=== PATIENT | female | born 1965 | race Caucasian/White ===

== ENCOUNTER 2017-06-05 00:10 | Emergency (ER) | payer SELFPAY ==
[~2017-06-05] VITALS: Ht 160 cm; Wt 85.0 kg
[~2017-06-05 00:10] MED LIST: ALUM5LIQ PO; FLUO20TA20 PO; RANI150 PO; SINE50TA PO; TRAM100T19 PO; ZOFR4TAB PO; ZOLP10TA3 PO
[2017-06-05 00:12] VITALS: BP 185/100; PULSE 94; RESP 16; TEMP 97.9; O2SAT 99
[2017-06-05] MEDS ORDERED: SODIUM CHLOR 0.9% 1000 ML INJ 1,000 ML IV SCH (00:35)
[2017-06-05] MEDS ORDERED: ONDANSETRON HCL 4 MG/2 ML VIAL IVP ONE (00:45)
[2017-06-05] MEDS ORDERED: SODIUM CHLORIDE 0.9% FLUSH 10 ML FLUSH IV FLUSH PRN (00:45)
--- NOTE | 2017-06-05 00:48 | PD ---
HPI Chief Complaint: Abdominal Pain Time Seen by Provider: 00:29 Travel History International Travel<30 days: No Contact w/Intl Traveler<30days: No Traveled to known affect area: No History of Present Illness HPI 52-year-old woman presents emergent from her quadrant pains with nausea vomiting ongoing for the past days. Said history of gallbladder problems remote past, nothing recently. Symptoms been severe throughout the day today. Multiple vomiting. No urinary symptoms. No change in her bowel movements. She otherwise had been feeling generally well and healthy. History Past Medical History Narrative Medical Asthma Hypertension Parkinson's Tetanus Vaccination: < 5 Years Influenza Vaccination: No LMP: menapause Menopausal: Yes : 1 Para: 1 Social History Alcohol Use: No Tobacco Use: No Allergies-Medications (Allergen,Severity, Reaction): Coded Allergies: Sulfa (Sulfonamide Antibiotics) (Unverified Allergy, Severe, Anaphylaxis, 06/05/17) latex (Unverified Allergy, Severe, RED SKIN, 06/05/17) penicillin G (Unverified Allergy, Severe, Anaphylaxis, 06/05/17) Reported Meds & Prescriptions Reported Meds & Active Scripts Active Zofran Odt (Ondansetron Odt) 4 Mg Tab 4 Mg SL Q8HR PRN Ranitidine (Ranitidine HCl) 150 Mg Tab 150 Mg PO BID Review of Systems Except as stated in HPI: all other systems reviewed are Neg Physical Exam Narrative GENERAL: 52-year-old woman, no acute distress. SKIN: Focused skin assessment warm/dry. HEAD: Atraumatic. Normocephalic. EYES: Pupils equal and round. No scleral icterus. No injection or drainage. ENT: No nasal bleeding or discharge. Mucous membranes pink and moist. NECK: Trachea midline. No JVD. CARDIOVASCULAR: Regular rate and rhythm. No murmur appreciated. RESPIRATORY: No accessory muscle use. Clear to auscultation. Breath sounds equal bilaterally. GASTROINTESTINAL: Abdomen is obese and soft. Moderate epigastric and right upper quadrant tenderness. No rebound or guarding. MUSCULOSKELETAL: No obvious deformities. No clubbing. No cyanosis. No edema. NEUROLOGICAL: Awake and alert. No obvious cranial nerve deficits. Motor grossly within normal limits. Normal speech. PSYCHIATRIC: Appropriate mood and affect; insight and judgment normal. Data Data Last Documented VS Vital Signs Date Time Temp Pulse Resp B/P (MAP) Pulse Ox O2 Delivery O2 Flow Rate FiO2 06/05/17 02:18 90 18 162/87 (112) 99 06/05/17 00:12 97.9 Room Air Orders Orders Complete Blood Count With Diff (06/05/17 00:35) Comprehensive Metabolic Panel (06/05/17 00:35) Lipase (06/05/17 00:35) Urinalysis - C+S If Indicated (06/05/17 00:35) Us Abdomen Gallbladder (06/05/17 ) Iv Access Insert/Monitor (06/05/17 00:35) Ecg Monitoring (06/05/17 00:35) Oximetry (06/05/17 00:35) Ondansetron Inj (Zofran Inj) (06/05/17 00:45) Sodium Chlor 0.9% 1000 Ml Inj (Ns 1000 M (06/05/17 00:35) Sodium Chloride 0.9% Flush (Ns Flush) (06/05/17 00:45) Ed Discharge Order (06/05/17 02:00) Ondansetron Inj (Zofran Inj) (06/05/17 02:15) Labs Laboratory Tests Test 06/05/17 00:40 White Blood Count 7.8 TH/MM3 Red Blood Count 5.18 MIL/MM3 Hemoglobin 15.6 GM/DL Hematocrit 45.8 % Mean Corpuscular Volume 88.3 FL Mean Corpuscular Hemoglobin 30.1 PG Mean Corpuscular Hemoglobin Concent 34.1 % Red Cell Distribution Width 12.2 % Platelet Count 269 TH/MM3 Mean Platelet Volume 7.1 FL Neutrophils (%) (Auto) 42.1 % Lymphocytes (%) (Auto) 47.3 % Monocytes (%) (Auto) 7.0 % Eosinophils (%) (Auto) 3.1 % Basophils (%) (Auto) 0.5 % Neutrophils # (Auto) 3.3 TH/MM3 Lymphocytes # (Auto) 3.7 TH/MM3 Monocytes # (Auto) 0.5 TH/MM3 Eosinophils # (Auto) 0.2 TH/MM3 Basophils # (Auto) 0.0 TH/MM3 CBC Comment DIFF FINAL Differential Comment Urine Color YELLOW Urine Turbidity CLEAR Urine pH 6.5 Urine Specific [place] 1.017 Urine Protein NEG mg/dL Urine Glucose (UA) NEG mg/dL Urine Ketones NEG mg/dL Urine Occult Blood NEG Urine Nitrite NEG Urine Bilirubin NEG Urine Urobilinogen LESS THAN 2.0 MG/DL Urine Leukocyte Esterase TRACE Urine RBC 1 /hpf Urine WBC 1 /hpf Urine Squamous Epithelial Cells 3 /hpf Urine Mucus FEW /lpf Microscopic Urinalysis Comment CULT NOT INDICATED Blood Urea Nitrogen 12 MG/DL Creatinine 0.80 MG/DL Random Glucose 99 MG/DL Total Protein 7.5 GM/DL Albumin 4.2 GM/DL Calcium Level 9.0 MG/DL Alkaline Phosphatase 136 U/L Aspartate Amino Transf (AST/SGOT) 15 U/L Alanine Aminotransferase (ALT/SGPT) 9 U/L Total Bilirubin 0.6 MG/DL Sodium Level 141 MEQ/L Potassium Level 3.5 MEQ/L Chloride Level 104 MEQ/L Carbon Dioxide Level 29.2 MEQ/L Anion Gap 8 MEQ/L Estimat Glomerular Filtration Rate 75 ML/MIN Lipase 165 U/L [facility] Medical Decision Making Medical Screen Exam Complete: Yes Emergency Medical Condition: Yes Interpretation(s) LABS: CBC is unremarkable. CMP is overall unremarkable. Alkaline phosphatase 136. Lipase normal. UA unremarkable. Right upper quadrant ultrasound negative. Differential Diagnosis Cholecystitis, gastritis, pancreatitis, gastroenteritis, other Narrative Course Medical decision making INITIAL: 52 old woman, right upper quadrant abdominal pain, epigastric tenderness, looks well, probably biliary in origin, possibly gastritis or pancreatitis. We'll check labs, right upper quadrant ultrasound, urine, reassess. Diagnosis Primary Impression: Abdominal pain Additional Impression: Gastritis Additional Instructions: Take ranitidine as prescribed. Use Zofran as needed for nausea or vomiting. Return to the emergency department for any new or worsening symptoms. Scripts Ondansetron Odt (Zofran Odt) 4 Mg Tab 4 MG SL Q8HR Y for Nausea/Vomiting, #12 TAB 0 Refills Prov: Adarsh House MD 06/05/17 Ranitidine (Ranitidine) 150 Mg Tab 150 MG PO BID for Heartburn Management, #60 TAB 0 Refills Prov: Adarsh House MD 06/05/17 Disposition: 01 DISCHARGE HOME Condition: Stable Adarsh House MD Jun 05, 2017 00:48
--- NOTE | 2017-06-05 01:17 | RADRPT ---
EXAM DATE/TIME: 06/05/2017 00:45 [facility] COMPARISON: No previous studies available for comparison. INDICATIONS : Right upper quadrant pain. MEDICAL HISTORY : Parkinson's. Hypertension. Gastroesophageal reflux disease. SURGICAL HISTORY : Tubal ligation. Left knee surgery. Fibroid removed. ENCOUNTER: Initial ACUITY: 1 day PAIN SCORE: 9/10 LOCATION: Right upper quadrant MEASUREMENTS: LIVER: 18.8 cm length COMMON DUCT: 4 mm RIGHT KIDNEY: 9.7 x 5.0 x 4.5 cm FINDINGS: LIVER: Normal echotexture without focal lesion or ductal dilatation. COMMON DUCT: No intraluminal mass or stone visualized. GALLBLADDER: Contains no stones, demonstrates no wall thickening or pericholecystic fluid. PANCREAS: The visualized portions are within normal limits. RIGHT KIDNEY: No evidence of hydronephrosis, stone, or mass. CONCLUSION: Focally unremarkable sonographic appearance of the right upper quadrant Emerson Mcneill MD on June 05, 2017 at 1:15 Board Certified Radiologist. This report was verified electronically.
[2017-06-05 01:27] LABS: AUTOMATED NEUTROPHIL # 3.3 TH/MM3 (1.8-7.7); BASOPHIL % 0.5 % (0.0-2.0); EOSINOPHIL # 0.2 TH/MM3 (0-0.4); EOSINOPHIL % 3.1 % (0.0-4.0); HEMATOCRIT 45.8 % (35.0-46.0); HEMOGLOBIN 15.6 GM/DL (11.6-15.3); LYMPH % 47.3 % (9.0-44.0); LYMPHOCYTE # 3.7 TH/MM3 (1.0-4.8); MEAN CELL VOLUME 88.3 FL (80.0-100.0); MEAN CORPUSCULAR HEMOGLOBIN 30.1 PG (27.0-34.0); MEAN CORPUSCULAR HGB CONC 34.1 % (32.0-36.0); MEAN PLATELET VOLUME 7.1 FL (7.0-11.0); MONOCYTE # 0.5 TH/MM3 (0-0.9); NEUT % 42.1 % (16.0-70.0); PLATELET COUNT 269 TH/MM3 (150-450); RED BLOOD COUNT 5.18 MIL/MM3 (4.00-5.30); RED CELL DISTRIBUTION WIDTH 12.2 % (11.6-17.2); WHITE BLOOD COUNT 7.8 TH/MM3 (4.0-11.0)
[2017-06-05 01:43] LABS: ALBUMIN 4.2 GM/DL (3.4-5.0); ALT (GPT) 9 U/L (10-53); AST (GOT) 15 U/L (15-37); BICARBONATE 29.2 MEQ/L (21.0-32.0); BLOOD UREA NITROGEN 12 MG/DL (7-18); CHLORIDE 104 MEQ/L (98-107); GLOMERULAR FILTRATION RATE 75 ML/MIN (>89); GLUCOSE,RANDOM 99 MG/DL (74-106); LIPASE 165 U/L (73-393); SODIUM (NA) 141 MEQ/L (136-145)
[2017-06-05 01:44] LABS: ALKALINE PHOSPHATASE 136 U/L (45-117); BILIRUBIN, URINE NEG (NEG); BLOOD, URINE NEG (NEG); GLUCOSE,URINE NEG (NEG); KETONE, URINE NEG (NEG); MUCUS URINE FEW /lpf (OCC); NITRITE,URINE NEG (NEG); PH, URINE 6.5 (5.0-8.5); SQUAMOUS EPITHELIAL CELL URINE 3 /hpf (0-5); TOTAL BILIRUBIN ADULT 0.6 MG/DL (0.2-1.0); TOTAL PROTEIN 7.5 GM/DL (6.4-8.2); URINE COLOR YELLOW (YELLW/STRAW); URINE LEUKOCYTE ESTERASE TRACE (NEG)
[2017-06-05] MEDS ORDERED: RANI150T PO (01:59)
[2017-06-05] MEDS ORDERED: ZOFR4TAB3 SL (01:59)
[2017-06-05] MEDS ORDERED: ONDANSETRON HCL 4 MG/2 ML VIAL IV ONE (02:15)
[2017-06-05 02:18] VITALS: BP 162/87
== END 2017-06-05 02:22 | disposition home or self-care (01) ==
LOC: NEPE 00:10
DX: K29.70 Gastritis, unspecified, without bleeding (principal)
CPT/HCPCS: 76705; 80053; 81001; 83690; 85025; 96361; 96374; 96376; 99285; J2405; J7030

== ENCOUNTER 2017-09-19 14:13 | Observation (INO) | payer MEDICAID ==
[2017-09-19] VITALS (7 sets, daily range): BP systolic 92–140; BP diastolic 51–79; PULSE 81–100; RESP 16; TEMP 97.4–98.2; O2SAT 95–99
[~2017-09-19] VITALS: Ht 160 cm; Wt 89.0 kg
[~2017-09-19 14:13] MED LIST changes: -ALUM5LIQ PO; -FLUO20TA20 PO; -RANI150 PO; +RANI150T PO; -SINE50TA PO; -TRAM100T19 PO; -ZOFR4TAB PO; +ZOFR4TAB3 SL; -ZOLP10TA3 PO
[2017-09-19] MEDS ORDERED: ALPR.25 PO (14:42)
[2017-09-19] MEDS ORDERED: TYLE325T PO (14:42)
[2017-09-19] MEDS ORDERED: TRAZ100T10 PO (14:42)
[2017-09-19] MEDS ORDERED: CARB25TA12 PO (14:42)
[2017-09-19] MEDS ORDERED: OMEP40CA2 PO (14:42)
[2017-09-19] MEDS ORDERED: SODIUM CHLORIDE 0.9% FLUSH 10 ML FLUSH IVF PRN (14:45)
--- NOTE | 2017-09-19 15:25 | PD ---
HPI Chief Complaint: Chest Pain Time Seen by Provider: 15:01 Travel History International Travel<30 days: No Contact w/Intl Traveler<30days: No Traveled to known affect area: No History of Present Illness HPI 52-year-old female who presents to the ED for evaluation of chest pain. Patient has a history of chest pain that started about 2 hours before coming. Per patient the pain was very intense and significant. Per patient started more with nausea and vomiting she became diaphoretic. When she developed the chest pain. Per patient she has never had anything like this before. Per patient she was given nitroglycerin and aspirin with improvement of symptoms. Per patient came down from 7 out of 10 to 3 out of 10. Per patient now she does not have the pain but feels like a pressure in her chest. She denies any history of heart disease. She does have a history of high blood pressure and high cholesterol and is currently trying conservative treatment rather than medications at this time. Per patient she has no history of diabetes but she was treated for gestational diabetes when she was . She follows with the [facility]. She has an allergy to sulfa and penicillin. Denies any urinary or bowel movement issues. States that she vomited a couple times when the pain started. Per patient she no longer feels nauseous. She does feel diaphoretic. She denies ever having a stress test. Per patient she had an EKG did show some abnormalities at some point but she is not specific as to what it actually showed. PFSH Past Medical History Asthma: Yes Anxiety: Yes Cardiovascular Problems: Yes (HTN) Cerebrovascular Accident: No (PARKINSONS) Diminished Hearing: No GERD: Yes Hypertension: Yes Parkinson's Disease: Yes Tetanus Vaccination: Unknown Influenza Vaccination: No ?: Not Menopausal: Yes : 1 Para: 1 Tubal Ligation: Yes Past Surgical History Ear Surgery: Yes (PE TUBES) Gynecologic Surgery: Yes (UTERINE FIBRIOD REMOVED) Tonsillectomy: Yes Other Surgery: Yes (cyst right breast, poldinal cyst removed) Social History Alcohol Use: No Tobacco Use: No Substance Use: No Allergies-Medications (Allergen,Severity, Reaction): Coded Allergies: Sulfa (Sulfonamide Antibiotics) (Unverified Allergy, Severe, Anaphylaxis, 09/19/17) latex (Unverified Allergy, Severe, RED SKIN, 09/19/17) penicillin G (Unverified Allergy, Severe, Anaphylaxis, 09/19/17) Reported Meds & Prescriptions Reported Meds & Active Scripts Active Reported Trazodone (Trazodone HCl) 100 Mg Tablet 100 Mg PO TID PRN Xanax (Alprazolam) 0.25 Mg Tab 0.25 Mg PO Q6H PRN Tylenol (Acetaminophen) 325 Mg Tab 650 Mg PO DAILY Omeprazole 40 Mg Cap 40 Mg PO BID Carbidopa-Levodopa 25-250 Mg Tab 1 Tab PO Q6HR Review of Systems Except as stated in HPI: all other systems reviewed are Neg Physical Exam Narrative GENERAL: SKIN: Warm and dry. HEAD: Atraumatic. Normocephalic. EYES: Pupils equal and round. No scleral icterus. No injection or drainage. ENT: No nasal bleeding or discharge. Mucous membranes pink and moist. Tongue is midline. No uvula deviation. NECK: Trachea midline. No JVD. CARDIOVASCULAR: Regular rate and rhythm. No murmurs, S3, S4. RESPIRATORY: No accessory muscle use. Clear to auscultation. Breath sounds equal bilaterally. GASTROINTESTINAL: Abdomen soft, non-tender, nondistended. Hepatic and splenic margins not palpable. MUSCULOSKELETAL: Extremities without clubbing, cyanosis, or edema. No obvious deformities. Full range of motion of the upper and lower extremities bilaterally. 2+ pulses bilaterally. NEUROLOGICAL: Awake and alert. No obvious cranial nerve deficits. Motor grossly within normal limits. Five out of 5 muscle strength in the arms and legs. Normal speech. PSYCHIATRIC: Appropriate mood and affect; insight and judgment normal. Data Data Last Documented VS Vital Signs Date Time Temp Pulse Resp B/P (MAP) Pulse Ox O2 Delivery O2 Flow Rate FiO2 09/19/17 14:36 97.4 100 16 123/70 (87) 98 Orders Orders Electrocardiogram (09/19/17 14:32) Ckmb (Isoenzyme) Profile (09/19/17 14:32) Complete Blood Count With Diff (09/19/17 14:32) Comprehensive Metabolic Panel (09/19/17 14:32) D-Dimer (09/19/17 14:32) Magnesium (Mg) (09/19/17 14:32) Prothrombin Time / Inr (Pt) (09/19/17 14:32) Act Partial Throm Time (Ptt) (09/19/17 14:32) Troponin I (09/19/17 14:32) Lipase (09/19/17 14:32) Chest, Single Ap (09/19/17 14:32) Ecg Monitoring (09/19/17 14:32) Bilateral Bp Monitoring (09/19/17 14:32) Iv Access Insert/Monitor (09/19/17 14:32) Oximetry (09/19/17 14:32) Oxygen Administration (09/19/17 14:32) Sodium Chloride 0.9% Flush (Ns Flush) (09/19/17 14:45) Nitroglycerin 2% Oint (Nitroglycerin 2% (09/19/17 15:30) Morphine Inj (Morphine Inj) (09/19/17 15:30) Ondansetron Inj (Zofran Inj) (09/19/17 15:30) MDM Medical Decision Making Medical Screen Exam Complete: Yes Emergency Medical Condition: Yes Medical Record Reviewed: Yes Differential Diagnosis Chest pain versus ACS versus acute chest pain versus atypical chest pain versus gastritis versus pancreatitis versus gallbladder disease versus unstable angina Narrative Course 52-year-old female who presents to the ED for evaluation of chest pain. Patient was properly examined and was found to have signs and symptoms consistent appears to be chest pain. Labs and imaging order. Case will be signed out to incoming provider pending disposition and plan. Abhijeet Dee Sep 19, 2017 15:25
[2017-09-19] MEDS ORDERED: ONDANSETRON HCL 4 MG/2 ML VIAL IV PUSH ONE (15:30)
[2017-09-19] MEDS ORDERED: NITROGLYCERIN 2% OINT 1 GM PACKET TOPICAL ONE (15:30)
[2017-09-19] MEDS ORDERED: MORPHINE SULFATE 2 MG/ML SYRINGE IV PUSH ONE (15:30)
--- NOTE | 2017-09-19 15:34 | RADRPT ---
EXAM DATE/TIME: 09/19/2017 14:50 [facility] COMPARISON: No previous studies available for comparison. INDICATIONS : Vomiting, syncope, chest pain, short of breath. MEDICAL HISTORY : Hypertension. Gastroesophageal reflux disease. Parkinson's SURGICAL HISTORY : Tubal ligation. fibroid removed. ENCOUNTER: Initial ACUITY: 1 day PAIN SCORE: 5/10 LOCATION: Bilateral chest FINDINGS: A single view of the chest demonstrates the lungs to be symmetrically aerated without evidence of mas s, infiltrate or effusion. The cardiomediastinal contours are unremarkable. Osseous structures are intact. CONCLUSION: 1. No acute cardiopulmonary disease. Sonny Gipson MD on September 19, 2017 at 15:31 Board Certified Radiologist. This report was verified electronically.
[2017-09-19 15:38] LABS: AUTOMATED NEUTROPHIL # 11.9 TH/MM3 (1.8-7.7); BASOPHIL % 0.2 % (0.0-2.0); EOSINOPHIL % 0.3 % (0.0-4.0); HEMATOCRIT 44.3 % (35.0-46.0); HEMOGLOBIN 14.9 GM/DL (11.6-15.3); LYMPH % 5.8 % (9.0-44.0); LYMPHOCYTE # 0.8 TH/MM3 (1.0-4.8); MEAN CELL VOLUME 88.8 FL (80.0-100.0); MEAN CORPUSCULAR HEMOGLOBIN 29.9 PG (27.0-34.0); MEAN CORPUSCULAR HGB CONC 33.7 % (32.0-36.0); MEAN PLATELET VOLUME 7.1 FL (7.0-11.0); MONOCYTE # 0.8 TH/MM3 (0-0.9); NEUT % 87.7 % (16.0-70.0); PLATELET COUNT 231 TH/MM3 (150-450); RED BLOOD COUNT 4.99 MIL/MM3 (4.00-5.30); RED CELL DISTRIBUTION WIDTH 12.7 % (11.6-17.2); WHITE BLOOD COUNT 13.5 TH/MM3 (4.0-11.0)
[2017-09-19 15:58] LABS: PROTHROMBIN TIME - PATIENT 10.2 SEC (9.8-11.6)
[2017-09-19 16:00] LABS: D-DIMER 0.59 MG/L FEU (0.00-0.50)
[2017-09-19 16:04] LABS: ALBUMIN 3.8 GM/DL (3.4-5.0); ALT (GPT) 18 U/L (10-53); AST (GOT) 18 U/L (15-37); BICARBONATE 22.8 MEQ/L (21.0-32.0); BLOOD UREA NITROGEN 23 MG/DL (7-18); CALCIUM 8.5 MG/DL (8.5-10.1); CHLORIDE 107 MEQ/L (98-107); CREATININE 0.79 MG/DL (0.50-1.00); GLOMERULAR FILTRATION RATE 76 ML/MIN (>89); GLUCOSE,RANDOM 137 MG/DL (74-106); MAGNESIUM 1.6 MG/DL (1.5-2.5); SODIUM (NA) 140 MEQ/L (136-145)
[2017-09-19 16:08] LABS: ALKALINE PHOSPHATASE 140 U/L (45-117); TOTAL BILIRUBIN ADULT 0.6 MG/DL (0.2-1.0); TOTAL PROTEIN 6.8 GM/DL (6.4-8.2); TROPONIN I LESS THAN 0.02 NG/ML (0.02-0.05)
--- NOTE | 2017-09-19 16:43 | PD ---
Data Data Last Documented VS Vital Signs Date Time Temp Pulse Resp B/P (MAP) Pulse Ox O2 Delivery O2 Flow Rate FiO2 09/19/17 16:31 96 121/60 (80) 118/62 (80) 09/19/17 16:30 95 Room Air 09/19/17 14:36 97.4 16 Orders Orders Electrocardiogram (09/19/17 14:32) Ckmb (Isoenzyme) Profile (09/19/17 14:32) Complete Blood Count With Diff (09/19/17 14:32) Comprehensive Metabolic Panel (09/19/17 14:32) D-Dimer (09/19/17 14:32) Magnesium (Mg) (09/19/17 14:32) Prothrombin Time / Inr (Pt) (09/19/17 14:32) Act Partial Throm Time (Ptt) (09/19/17 14:32) Troponin I (09/19/17 14:32) Lipase (09/19/17 14:32) Chest, Single Ap (09/19/17 14:32) Ecg Monitoring (09/19/17 14:32) Bilateral Bp Monitoring (09/19/17 14:32) Iv Access Insert/Monitor (09/19/17 14:32) Oximetry (09/19/17 14:32) Oxygen Administration (09/19/17 14:32) Sodium Chloride 0.9% Flush (Ns Flush) (09/19/17 14:45) Nitroglycerin 2% Oint (Nitroglycerin 2% (09/19/17 15:30) Morphine Inj (Morphine Inj) (09/19/17 15:30) Ondansetron Inj (Zofran Inj) (09/19/17 15:30) Ct Pulmonary Angiogram (09/19/17 ) Iohexol 350 Inj (Omnipaque 350 Inj) (09/19/17 17:05) Admit Order (Ed Use Only) (09/19/17 17:40) Activity Bed Rest With Brp (09/19/17 17:40) Vital Signs (Adult) Q4H (09/19/17 17:40) Cardiac Rhythm .As Directed (09/19/17 17:40) Notify Dr: Other .PRN (09/19/17 17:40) Notify Dr. Parameters (09/19/17 17:40) Resp Oxygen Nasal Cannula (09/19/17 ) Ckmb (Isoenzyme) Profile (09/19/17 18:15) Ckmb (Isoenzyme) Profile (09/19/17 21:15) Troponin I (09/19/17 18:15) Troponin I (09/19/17 21:15) Electrocardiogram (09/19/17 18:15) Electrocardiogram (09/19/17 21:15) ^ Obtain (09/19/17 17:40) Sodium Chloride 0.9% Flush (Ns Flush) (09/19/17 17:45) Sodium Chloride 0.9% Flush (Ns Flush) (09/19/17 21:00) User Experience Architect / Telemetry CARLENE.Q8H (09/19/17 17:40) Labs Laboratory Tests Test 09/19/17 15:15 White Blood Count 13.5 TH/MM3 Red Blood Count 4.99 MIL/MM3 Hemoglobin 14.9 GM/DL Hematocrit 44.3 % Mean Corpuscular Volume 88.8 FL Mean Corpuscular Hemoglobin 29.9 PG Mean Corpuscular Hemoglobin Concent 33.7 % Red Cell Distribution Width 12.7 % Platelet Count 231 TH/MM3 Mean Platelet Volume 7.1 FL Neutrophils (%) (Auto) 87.7 % Lymphocytes (%) (Auto) 5.8 % Monocytes (%) (Auto) 6.0 % Eosinophils (%) (Auto) 0.3 % Basophils (%) (Auto) 0.2 % Neutrophils # (Auto) 11.9 TH/MM3 Lymphocytes # (Auto) 0.8 TH/MM3 Monocytes # (Auto) 0.8 TH/MM3 Eosinophils # (Auto) 0.0 TH/MM3 Basophils # (Auto) 0.0 TH/MM3 CBC Comment DIFF FINAL Differential Comment Prothrombin Time 10.2 SEC Prothromb Time International Ratio 1.0 RATIO Activated Partial Thromboplast Time 20.3 SEC D-Dimer Quantitative (PE/DVT) 0.59 MG/L FEU Blood Urea Nitrogen 23 MG/DL Creatinine 0.79 MG/DL Random Glucose 137 MG/DL Total Protein 6.8 GM/DL Albumin 3.8 GM/DL Calcium Level 8.5 MG/DL Magnesium Level 1.6 MG/DL Alkaline Phosphatase 140 U/L Aspartate Amino Transf (AST/SGOT) 18 U/L Alanine Aminotransferase (ALT/SGPT) 18 U/L Total Bilirubin 0.6 MG/DL Sodium Level 140 MEQ/L Potassium Level 3.6 MEQ/L Chloride Level 107 MEQ/L Carbon Dioxide Level 22.8 MEQ/L Anion Gap 10 MEQ/L Estimat Glomerular Filtration Rate 76 ML/MIN Total Creatine Kinase 71 U/L Troponin I LESS THAN 0.02 NG/ML Lipase 128 U/L MDM Medical Record Reviewed: Yes Supervised Visit with MOLLY: No Narrative Course See previous providers notes for complete history of present illness. Briefly this is a 52-year-old female who presents via EMS for evaluation of chest pain. At 11 AM today she was sitting at work when she developed diaphoresis, nausea , vomiting, chest pain. She describes it as a substernal chest pressure which is constant, worse when breathing in deep. Denies cough, congestion, shortness of breath, abdominal pain. She received nitroglycerin, aspirin, Zofran prior to my examination and the nausea resolved and currently she only has residual substernal chest pressure. Initial lab work reveals WBC count of 13.5, negative cardiac enzymes, d-dimer was mildly elevated so previous provider ordered CT pulmonary angiogram which is negative for pulmonary embolism. The patient will be admitted to the chest pain center for serial cardiac enzymes and rule out purposes. Diagnosis Primary Impression: Chest pain Admitting Information Admitting Physician Requests: Elie Chávez Sep 19, 2017 16:43
[2017-09-19] MEDS ORDERED: IOHEXOL 350 MG/ML 10 ML VIAL (for RAD DIAG) IVCONTRAST ONE (17:05)
--- NOTE | 2017-09-19 17:08 | PD ---
Physical Exam Date Seen by Provider: Sep 19, 2017 Narrative This patient presented to us following an acute episode of diaphoresis followed by nausea and vomiting followed by chest pain. Her symptoms have improved with aspirin, nitro and Zofran. She reports no previous similar history. She does have a history of Parkinson's disease and "stomach problems" for which she takes Prilosec. Data Data Last Documented VS Vital Signs Date Time Temp Pulse Resp B/P (MAP) Pulse Ox O2 Delivery O2 Flow Rate FiO2 09/19/17 16:31 96 121/60 (80) 118/62 (80) 09/19/17 16:30 95 Room Air 09/19/17 14:36 97.4 16 Orders Orders Electrocardiogram (09/19/17 14:32) Ckmb (Isoenzyme) Profile (09/19/17 14:32) Complete Blood Count With Diff (09/19/17 14:32) Comprehensive Metabolic Panel (09/19/17 14:32) D-Dimer (09/19/17 14:32) Magnesium (Mg) (09/19/17 14:32) Prothrombin Time / Inr (Pt) (09/19/17 14:32) Act Partial Throm Time (Ptt) (09/19/17 14:32) Troponin I (09/19/17 14:32) Lipase (09/19/17 14:32) Chest, Single Ap (09/19/17 14:32) Ecg Monitoring (09/19/17 14:32) Bilateral Bp Monitoring (09/19/17 14:32) Iv Access Insert/Monitor (09/19/17 14:32) Oximetry (09/19/17 14:32) Oxygen Administration (09/19/17 14:32) Sodium Chloride 0.9% Flush (Ns Flush) (09/19/17 14:45) Nitroglycerin 2% Oint (Nitroglycerin 2% (09/19/17 15:30) Morphine Inj (Morphine Inj) (09/19/17 15:30) Ondansetron Inj (Zofran Inj) (09/19/17 15:30) Ct Pulmonary Angiogram (09/19/17 ) Iohexol 350 Inj (Omnipaque 350 Inj) (09/19/17 17:05) Labs Laboratory Tests Test 09/19/17 15:15 White Blood Count 13.5 TH/MM3 Red Blood Count 4.99 MIL/MM3 Hemoglobin 14.9 GM/DL Hematocrit 44.3 % Mean Corpuscular Volume 88.8 FL Mean Corpuscular Hemoglobin 29.9 PG Mean Corpuscular Hemoglobin Concent 33.7 % Red Cell Distribution Width 12.7 % Platelet Count 231 TH/MM3 Mean Platelet Volume 7.1 FL Neutrophils (%) (Auto) 87.7 % Lymphocytes (%) (Auto) 5.8 % Monocytes (%) (Auto) 6.0 % Eosinophils (%) (Auto) 0.3 % Basophils (%) (Auto) 0.2 % Neutrophils # (Auto) 11.9 TH/MM3 Lymphocytes # (Auto) 0.8 TH/MM3 Monocytes # (Auto) 0.8 TH/MM3 Eosinophils # (Auto) 0.0 TH/MM3 Basophils # (Auto) 0.0 TH/MM3 CBC Comment DIFF FINAL Differential Comment Prothrombin Time 10.2 SEC Prothromb Time International Ratio 1.0 RATIO Activated Partial Thromboplast Time 20.3 SEC D-Dimer Quantitative (PE/DVT) 0.59 MG/L FEU Blood Urea Nitrogen 23 MG/DL Creatinine 0.79 MG/DL Random Glucose 137 MG/DL Total Protein 6.8 GM/DL Albumin 3.8 GM/DL Calcium Level 8.5 MG/DL Magnesium Level 1.6 MG/DL Alkaline Phosphatase 140 U/L Aspartate Amino Transf (AST/SGOT) 18 U/L Alanine Aminotransferase (ALT/SGPT) 18 U/L Total Bilirubin 0.6 MG/DL Sodium Level 140 MEQ/L Potassium Level 3.6 MEQ/L Chloride Level 107 MEQ/L Carbon Dioxide Level 22.8 MEQ/L Anion Gap 10 MEQ/L Estimat Glomerular Filtration Rate 76 ML/MIN Total Creatine Kinase 71 U/L Troponin I LESS THAN 0.02 NG/ML Lipase 128 U/L MDM Supervised Visit with MOLLY: Yes Narrative Course I, Dr. Burnett, have reviewed the advance practice practitioner's documentation and am in agreement, met with the patient face to face, made the diagnosis, and the medical decision making was done by me. *My assessment and Findings: Patient is awake alert and in no acute distress. The plan is to do a routine cardiac workup and then admit her to the chest pain center assuming her initial evaluation is negative. Please see Elie Janie, PA-C's note for results of laboratory and radiographic evaluation, ED course, final diagnosis and disposition Diagnosis Primary Impression: Chest pain Hanny Burnett MD Sep 19, 2017 17:08
--- NOTE | 2017-09-19 17:34 | RADRPT ---
EXAM DATE/TIME: 09/19/2017 16:58 [facility] COMPARISON: No previous studies available for comparison. INDICATIONS : Patient complains of nausea, vomiting and short of breath. IV CONTRAST: 10.55 cc Omnipaque 350 (iohexol) IV RADIATION DOSE: 70 CTDIvol (mGy) MEDICAL HISTORY : Parkinson's. Hypertension. SURGICAL HISTORY : Tubal ligation. ENCOUNTER: Initial ACUITY: 1 day PAIN SCALE: 4/10 LOCATION: chest TECHNIQUE: Volumetric scanning of the chest was performed using a pulmonary embolism protocol MIP images were re constructed. Using automated exposure control and adjustment of the mA and/or kV according to patien t size, radiation dose was kept as low as reasonably achievable to obtain optimal diagnostic quality images. DICOM format image data is available electronically for review and comparison. Follow-up recommendations for detected pulmonary nodules are based at a minimum on nodule size and pa tient risk factors according to Fleischner Society Guidelines. FINDINGS: PULMONARY ARTERIES: No filling defects are seen in the pulmonary arteries through the segmental level. LUNGS: There is no consolidation or pneumothorax . No concerning pulmonary nodule is visualized. PLEURAE: There is no pleural thickening or pleural effusion. MEDIASTINUM: There is good visualization of the great vessels of the middle mediastinum. No evidence of mediastin al or hilar adenopathy/mass. Coronary artery calcifications are noted. MUSCULOSKELETAL: Degenerative changes are noted throughout the thoracic spine. MISCELLANEOUS: The visualized upper abdominal organs demonstrate no acute abnormality. CONCLUSION: 1. No evidence of pulmonary embolism. 2. Coronary artery calcifications. 3. Degenerative changes noted throughout the thoracic spine. Margarito Marie MD on September 19, 2017 at 17:31 Board Certified Radiologist. This report was verified electronically.
[2017-09-19] MEDS ORDERED: SODIUM CHLORIDE 0.9% FLUSH 10 ML FLUSH IV FLUSH PRN (17:45)
[2017-09-19] MEDS ORDERED: MORPHINE SULFATE 4 MG/ML INJ IV PUSH ONE (17:45)
[2017-09-19 19:37] LABS: TROPONIN I LESS THAN 0.02 NG/ML (0.02-0.05)
--- NOTE | 2017-09-19 20:14 | EKG ---
Date Performed: 09/19/2017 Time Performed: 15:02:20 PTAGE: 52 years EKG: SINUS TACHYCARDIA POSSIBLE LEFT ATRIAL ENLARGEMENT LOW QRS VOLTAGE IN EXTREMITY LEADS ABNOR MAL QRS-T ANGLE ABNORMAL ECG Probably no significant change from prior EKG. PREVIOUS TRACING : 05/20/2006 09.22 DOCTOR: Rudolph Tanner Interpretating Date/Time 09/19/2017 20:13:27
[2017-09-19] MEDS: CARBIDOPA/LEVODOPA 25 MG/250 MG TAB PO SCH (20:44)
[2017-09-19] MEDS: SODIUM CHLORIDE 0.9% FLUSH 10 ML FLUSH IV FLUSH SCH (21:00)
[2017-09-19 21:55] LABS: TROPONIN I LESS THAN 0.02 NG/ML (0.02-0.05)
[2017-09-20 04:23] VITALS: BP 97/53; PULSE 72; RESP 15; TEMP 98.2; O2SAT 98
--- NOTE | 2017-09-20 04:46 | EKG ---
Date Performed: 09/19/2017 Time Performed: 19:32:31 PTAGE: 52 years EKG: Sinus rhythm NORMAL ECG Compared to prior electrocardiogram, Nonspecific T wave changes no longer present. PREVIOUS TRACING : 09/19/2017 15.02 DOCTOR: Rudolph Tanner Interpretating Date/Time 09/20/2017 04:46:08
[2017-09-20] MEDS: CARBIDOPA/LEVODOPA 25 MG/250 MG TAB PO SCH ×3 (06:00→12:11)
[2017-09-20 08:19] VITALS: BP 129/70; PULSE 87; RESP 16; TEMP 97.6; O2SAT 97
[2017-09-20 08:30] VITALS: PULSE 82
[2017-09-20] MEDS ORDERED: REGADENOSON INJ 0.4 MG/5 ML SYR ONE (10:34)
--- NOTE | 2017-09-20 11:58 | HHI.HP ---
[facility] Primary Care Physician Quinn Guzman MD, PhD Chief Complaint Chest pain History of Present Illness This is a 52-year-old female that presents to ED to be evaluated for chest discomfort that began suddenly yesterday. He continued throughout the day. It is worse with deep inspiration. EVAC arrived within 25 minutes and she was given some aspirin and she seems to believe that it improved now much long after that. She was diaphoretic and nauseous with an episode of emesis that was nonbloody and nonbilious. Currently denies discomforts. Cannot recall recent stress testing. Review of Systems General: Patient denies fevers, chills, and recent travel. HEENT: Patient denies headache, sore throat, difficulty swallowing. Cardiovascular: Has the chest discomfort as mentioned above. Denies sensation of heart beating rapidly or irregularly. No syncope. Denies diaphoresis. Respiratory: She was short of breath. Discomfort was increased with deep inspiration.. Denies coughing wheezing or hemoptysis. GI: She was nauseous with one episode of emesis. Patient denies diarrhea, abdominal pain, bloody stools. Musculoskeletal: Patient denies joint pain or edema. Denies calf pain or edema. Neurovascular: Patient denies numbness, tingling, weakness in extremities. Denies headache. Endocrine: Denies polyuria and polydipsia. Hematologic: Denies easy bruising. Skin: Denies rash or itching. Past Family Social History Allergies: Coded Allergies: Sulfa (Sulfonamide Antibiotics) (Unverified Allergy, Severe, Anaphylaxis, 09/19/17) latex (Unverified Allergy, Severe, RED SKIN, 09/19/17) penicillin G (Unverified Allergy, Severe, Anaphylaxis, 09/19/17) Past Medical History Parkinson's. Denies hypertension, diabetes, CAD. History of hyperlipidemia but is trying diet control first. Past Surgical History Tonsillectomy. Cyst of her right breast. Pilonidal cyst removed. Uterine fibroid removed. Reported Medications Reported Meds & Active Scripts Active Reported Trazodone (Trazodone HCl) 100 Mg Tablet 100 Mg PO TID PRN Xanax (Alprazolam) 0.25 Mg Tab 0.25 Mg PO Q6H PRN Tylenol (Acetaminophen) 325 Mg Tab 650 Mg PO DAILY Omeprazole 40 Mg Cap 40 Mg PO BID Carbidopa-Levodopa 25-250 Mg Tab 1 Tab PO Q6HR Active Ordered Medications Current Medications Medications (Trade) Dose Ordered Sig/Gavi Route Start Time Stop Time Status Last Admin (NS Flush) 2 ml UNSCH PRN IVF 09/19/17 14:45 (NS Flush) 2 ml UNSCH PRN IV FLUSH 09/19/17 17:45 (NS Flush) 2 ml BID IV FLUSH 09/19/17 21:00 (Sinemet 25-250 Mg) 1 tab Q6HR PO 09/19/17 19:00 09/20/17 06:00 Family History Her father had CAD. Social History Does not smoke, drink alcohol, or use illicit drugs. Physical Exam Vital Signs Vital Signs Date Time Temp Pulse Resp B/P (MAP) Pulse Ox O2 Delivery O2 Flow Rate FiO2 09/20/17 08:30 82 09/20/17 08:19 97.6 87 16 129/70 (89) 97 09/20/17 04:23 98.2 72 15 97/53 (68) 98 09/19/17 23:58 98.2 81 16 92/51 (65) 99 09/19/17 19:25 98.1 82 16 108/59 (75) 95 09/19/17 19:22 97 09/19/17 18:12 98.1 99 16 140/79 (99) 95 09/19/17 18:06 (80) 09/19/17 16:31 96 121/60 (80) 118/62 (80) 09/19/17 16:30 95 Room Air 09/19/17 16:30 95 Room Air 09/19/17 14:36 97.4 100 16 123/70 (87) 98 Physical Exam GENERAL: This is a well-nourished, well-developed patient, in no apparent distress. Patient speaks in clear complete sentences. Patient is pleasant. HEENT: Head is atraumatic and normocephalic. Neck is supple without lymphadenopathy and trachea is midline. No JVD or carotid bruits. CARDIOVASCULAR: Regular rate and rhythm without murmurs, gallops, or rubs. RESPIRATORY: Clear to auscultation. Breath sounds equal bilaterally. No wheezes , rales, or rhonchi. Chest wall is nontender. No use of accessory muscles. GASTROINTESTINAL: Abdomen is nontender, nondistended. Abdomen soft. No obvious pulsatile mass or bruit. No CVA tenderness. Strong femoral pulses bilaterally. Normal bowel sounds in all quadrants. MUSCULOSKELETAL: Patient is moving upper and lower extremities freely. No calf tenderness or edema, no Homans sign. Strong pulses in upper and lower extremities. NEUROLOGICAL: Patient is alert and oriented. Cranial nerves 2-12 are grossly intact. No focal deficits and speech is clear. SKIN: No rash and turgor is normal. Laboratory Laboratory Tests Test 09/19/17 15:15 09/19/17 18:42 09/19/17 20:30 White Blood Count 13.5 Red Blood Count 4.99 Hemoglobin 14.9 Hematocrit 44.3 Mean Corpuscular Volume 88.8 Mean Corpuscular Hemoglobin 29.9 Mean Corpuscular Hemoglobin Concent 33.7 Red Cell Distribution Width 12.7 Platelet Count 231 Mean Platelet Volume 7.1 Neutrophils (%) (Auto) 87.7 Lymphocytes (%) (Auto) 5.8 Monocytes (%) (Auto) 6.0 Eosinophils (%) (Auto) 0.3 Basophils (%) (Auto) 0.2 Neutrophils # (Auto) 11.9 Lymphocytes # (Auto) 0.8 Monocytes # (Auto) 0.8 Eosinophils # (Auto) 0.0 Basophils # (Auto) 0.0 CBC Comment DIFF FINAL Differential Comment Prothrombin Time 10.2 Prothromb Time International Ratio 1.0 Activated Partial Thromboplast Time 20.3 D-Dimer Quantitative (PE/DVT) 0.59 Blood Urea Nitrogen 23 Creatinine 0.79 Random Glucose 137 Total Protein 6.8 Albumin 3.8 Calcium Level 8.5 Magnesium Level 1.6 Alkaline Phosphatase 140 Aspartate Amino Transf (AST/SGOT) 18 Alanine Aminotransferase (ALT/SGPT) 18 Total Bilirubin 0.6 Sodium Level 140 Potassium Level 3.6 Chloride Level 107 Carbon Dioxide Level 22.8 Anion Gap 10 Estimat Glomerular Filtration Rate 76 Total Creatine Kinase 71 94 109 Troponin I LESS THAN 0.02 LESS THAN 0.02 LESS THAN 0.02 Lipase 128 Creatine Kinase MB 1.4 Result Diagram: 09/19/17 1515 09/19/17 1515 Imaging Last 48 hours Impressions Chest X-Ray 09/19/17 1432 Signed Impressions: Service Date/Time: Tuesday, September 19, 2017 14:50 - CONCLUSION: 1. No acute cardiopulmonary disease. Sonny Gipson MD CT Angiography 09/19/17 0000 Signed Impressions: Service Date/Time: Tuesday, September 19, 2017 16:58 - CONCLUSION: 1. No evidence of pulmonary embolism. 2. Coronary artery calcifications. 3. Degenerative changes noted throughout the thoracic spine. Margarito Marie MD Course EKG are sinus rhythm without significant ST segment depressions or elevations. Caprini VTE Risk Assessment Caprini VTE Risk Assessment: No/Low Risk (score <= 1) Caprini Risk Assessment Model Point Value = 1 Point Value = 2 Point Value = 3 Point Value = 5 Age 41-60 Minor surgery BMI > 25 kg/m2 Swollen legs Varicose veins or History of unexplained or recurrent spontaneous Oral contraceptives or hormone replacement Sepsis (< 1 month) Serious lung disease, including pneumonia (< 1 month) Abnormal pulmonary function Acute myocardial infarction Congestive heart failure (< 1 month) History of inflammatory bowel disease Medical patient at bed rest Age 61-74 Arthroscopic surgery Major open surgery (> 45 min) Laparoscopic surgery (> 45 min) Malignancy Confined to bed (> 72 hours) Immobilizing plaster cast Central venous access Age >= 75 History of VTE Family history of VTE Factor V Leiden Prothrombin [id number] Lupus anticoagulant Anticardiolipin antibodies Elevated serum homocysteine Heparin-induced thrombocytopenia Other congenital or acquired thrombophilia Stroke (< 1 month) Elective arthroplasty Hip, pelvis, or leg fracture Acute spinal cord injury (< 1 month) Prophylaxis Regimen Total Risk Factor Score Risk Level Prophylaxis Regimen 0-1 Low Early ambulation 2 Moderate Order ONE of the following: *Sequential Compression Device (SCD) *Heparin 5000 units SQ BID 3-4 Higher Order ONE of the following medications: *Heparin 5000 units SQ TID *Enoxaparin/Lovenox 40 mg SQ daily (WT < 150 kg, CrCl > 30 mL/min) *Enoxaparin/Lovenox 30 mg SQ daily (WT < 150 kg, CrCl > 10-29 mL/min) *Enoxaparin/Lovenox 30 mg SQ BID (WT < 150 kg, CrCl > 30 mL/min) AND/OR *Sequential Compression Device (SCD) 5 or more Highest Order ONE of the following medications: *Heparin 5000 units SQ TID (Preferred with Epidurals) *Enoxaparin/Lovenox 40 mg SQ daily (WT < 150 kg, CrCl > 30 mL/min) *Enoxaparin/Lovenox 30 mg SQ daily (WT < 150 kg, CrCl > 10-29 mL/min) *Enoxaparin/Lovenox 30 mg SQ BID (WT < 150 kg, CrCl > 30 mL/min) AND *Sequential Compression Device (SCD) Assessment and Plan Assessment and Plan * Chest pain: Patient has had serial cardiac enzymes and EKGs for ruling out purposes. Patient was evaluated by Dr. Toth of cardiology in the chest pain center. Patient will undergo a Lexiscan. She will be discharged home if the stress test is nonischemic with instructions to follow-up with PCP. Return to ED for interval issues per * Parkinson's: Continue medications. Patient is stable at this time. She is agreeable to this plan. Alejandro Reynoso Sep 20, 2017 11:58
[2017-09-20] MEDS: SODIUM CHLORIDE 0.9% FLUSH 10 ML FLUSH IV FLUSH SCH (12:11)
--- NOTE | 2017-09-20 12:18 | RADRPT ---
EXAM DATE/TIME: 09/20/2017 09:33 [place] COMPARISON: No previous studies available for comparison. INDICATIONS : Chest pain. Angina. DOSE: 27.2 mCi Tc99m Myoview at stress. 8.7 mCi Tc99m Myoview at rest. 0.4 mg Lexiscan STRESS SYMPTOMS: Chest pain, heart racing,and stomach pain. EJECTION FRACTION: 66% MEDICAL HISTORY : None SURGICAL HISTORY : Tubal ligation. Tonsillectomy. Total knee replacement, left. ENCOUNTER: Initial ACUITY: 1 day PAIN SCALE: 0/10 LOCATION: Substernal chest TECHNIQUE: The patient underwent pharmacologic stress with infusion of prescribed dose. Continuous ECG tracing was monitored during stress. Gated SPECT imaging was performed after stress and conventional SPECT i maging was performed at rest. The examination was performed on a SPECT/CT scanner, both attenuation and non-corrected datasets were reviewed. FINDINGS: DISTRIBUTION: The maximum perfused segment at stress is in the septal wall. PERFUSION STUDY: The pattern of perfusion at stress is within normal limits. GATED STUDY: There is intact wall motion and thickening without hypokinetic or dyskinetic segments. CONCLUSION: No areas of suspected ischemia are seen. RISK CATEGORY: Low (<1% Annual Mortality Rate) Emerson Munoz MD on September 20, 2017 at 12:07 Board Certified Radiologist. This report was verified electronically.
--- NOTE | 2017-09-20 12:28 | HHI.DCPOC ---
Discharge Care Plan Diagnosis: (1) Chest pain Goals to Promote Your Health * To prevent worsening of your condition and complications * To maintain your health at the optimal level Directions to Meet Your Goals Take your medications as prescribed Follow your dietary instruction Follow activity as directed Keep your appointments as scheduled Take your immunizations and boosters as scheduled If your symptoms worsen call your PCP, if no PCP go to Urgent Care Center or Emergency Room Smoking is Dangerous to Your Health. Avoid second hand smoke Call the 24-hour hour crisis hotline for domestic abuse at Alejandro Reynoso Sep 20, 2017 12:28
--- NOTE | 2017-09-20 17:08 | EKG ---
Date Performed: 09/20/2017 Time Performed: 07:47:09 PTAGE: 52 years EKG: Sinus rhythm NORMAL ECG artifact Since PREVIOUS TRACING , no significant change noted PREVIOUS TRACIN09/19/2017 19.32 DOCTOR: Isabela Toth Interpretating Date/Time 09/20/2017 17:07:51
--- NOTE | 2017-09-20 17:10 | TR ---
Date Performed: 09/20/2017 Time Performed: 09:55:21 DOCTOR: Isabela Toth DRUG LIST: CLINICAL HISTORY: REASON FOR TEST: REASON FOR ENDING: OBSERVATION: CONCLUSION: Lexiscan stress test was performed under standard four minute protocol. Radionuclid e was injected one minute prior to ending the test. No electrocardiographic abormalities were present to suggest ischemia. Nuclear imaging and interpretation are pending. COMMENTS:
== END 2017-09-20 13:33 | disposition home or self-care (01) ==
LOC: NEPC 14:13 → NEDA 17:55 → NEPHCDU 18:50
PROVIDERS: ADMIT Internal Medicine Cardiovascular Disease; ATTEND Internal Medicine Cardiovascular Disease
DX: R07.89 Other chest pain (principal); R11.2 Nausea with vomiting, unspecified; R61 Generalized hyperhidrosis; R00.0 Tachycardia, unspecified; R94.31 Abnormal electrocardiogram [ECG] [EKG]; I10 Essential (primary) hypertension; G20 Parkinson's disease; J45.909 Unspecified asthma, uncomplicated; E78.00 Pure hypercholesterolemia, unspecified; K21.9 Gastro-esophageal reflux disease without esophagitis; F41.9 Anxiety disorder, unspecified
CPT/HCPCS: 71045; 71275; 78452; 80053; 82550; 82552; 83690; 83735; 84484; 85025; 85379; 85610; 85730; 93005; 93017; 96374; 96375; 96376; 99285; A9502; G0378; J2270; J2405; J2785; Q9967